=== PATIENT | female | born 1970 | race Caucasian/White ===

== ENCOUNTER → 2020-06-23 | Outpatient (CLI) | payer OTHER ==
[~2020-06-23] MED LIST: ACYC400 PO; ALORA1 EA10 TD; ASPI81CH PO; IBUP600 PO
== END | disposition home or self-care (01) ==
LOC: LAB SHORT 11:56 → LAB EV 11:56
DX: N39.0 Urinary tract infection, site not specified (principal)
CPT/HCPCS: 87077; 87086; 87186

== ENCOUNTER → 2020-07-05 | Outpatient (CLI) | payer OTHER ==
[2020-07-06 10:09] LABS: Candida species (DNA Probe) Negative (NEGATIVE); G. vaginalis (DNA Probe) Negative (NEGATIVE); T. vaginalis (DNA Probe) Negative (NEGATIVE)
[2020-07-07 04:09] LABS: CHLAMYDIA TRACHOMATIS, NAA Negative (Negative)
== END | disposition home or self-care (01) ==
LOC: LAB 11:20 → LAB SHORT 11:20
PROVIDERS: Obstetrics & Gynecology
DX: Z11.3 Encounter for screening for infections with a predominantly sexual mode of transmission (principal)
CPT/HCPCS: 87480; 87491; 87510; 87591; 87660

== ENCOUNTER 2020-07-22 19:25 | Observation (INO) | payer OTHER ==
[~2020-07-22] VITALS: Ht 172.7 cm; Wt 90.0 kg
[2020-07-22] MEDS ORDERED: ALORA1 EA10 TD (19:38)
[2020-07-22] MEDS ORDERED: ACYC400 PO (19:39)
[2020-07-22 20:02] LABS: BASOPHILS ABSOLUTE AUTO 0.03 K/mm3 (0.00-0.23); BASOPHILS PERCENT AUTO 0 % (0-2); EOSINOPHILS ABSOLUTE AUTO 0.06 K/mm3 (0.00-0.68); EOSINOPHILS PERCENT AUTO 1 % (0-6); Hematocrit 42.7 % (33.0-51.0); Hemoglobin 14.6 g/dL (11.5-16.0); IMMATURE GRAN ABSOLUTE AUTO 0.01 K/mm3 (0.00-0.10); IMMATURE GRAN PERCENT AUTO 0 % (0-1); LYMPHOCYTES ABSOLUTE AUTO 3.38 K/mm3 (0.84-5.20); LYMPHOCYTES PERCENT AUTO 41 % (21-46); MONOCYTES ABSOLUTE AUTO 0.81 K/mm3 (0.16-1.47); MONOCYTES PERCENT AUTO 10 % (4-13); Mean Corpuscular HGB 32.2 pg (26.0-34.0); Mean Corpuscular HGB Conc 34.2 g/dL (31.5-36.5); Mean Corpuscular Volume 94 fL (80-100); NEUTROPHILS ABSOLUTE AUTO 4.03 K/mm3 (1.96-9.15); NEUTROPHILS PERCENT AUTO 49 % (41-73); Platelet Count 244 K/mm3 (150-400); RDW Coefficient Variation 12.6 % (11.7-14.2); Red Blood Cell Count 4.53 M/mm3 (3.80-5.20); White Blood Cell Count 8.32 K/mm3 (4.00-11.30)
[2020-07-22 20:19] LABS: International Normalized Ratio 1.02; Prothrombin Time Results 10.9 Sec (9.7-11.5)
[2020-07-22 20:21] LABS: Alanine Aminotransfer (ALT/SGP 48 U/L (12-78); Albumin, Blood 4.2 g/dL (3.4-5.0); Albumin/Globulin Ratio 1.4 (0.8-1.8); Alk Phos 58 U/L (50-136); Anion Gap 5 mmol/L (6-16); Aspartate Aminotrans (AST/SGOT 31 U/L (12-37); Bilirubin, Total 0.4 mg/dL (0.1-1.0); Blood Urea Nitrogen 11 mg/dL (8-24); Bun/Creatinine Ratio 12.4 (12.0-20.0); CO2, Blood 26 mmol/L (21-32); Chloride, Blood 111 mmol/L (98-108); Creatinine, Blood 0.89 mg/dL (0.40-1.00); Ethanol (Alcohol), Blood, Med <3 mg/dL; Globulin, Blood 3.1 g/dL (2.2-4.0); Glomerular Filtration Rate >60 (60-); Glucose, Blood 102 mg/dL (70-99); Potassium, Blood 3.7 mmol/L (3.5-5.5); Sodium, Blood 142 mmol/L (136-145); Total Protein, Blood 7.3 g/dL (6.4-8.2)
--- NOTE | 2020-07-22 23:00 | NUR ---
REPORT RECEIVED FROM RAFAELAED RN. PT TRANSPORTED TO MEDICAL FLOOR [facility]IA [facility], AMBULATED FROM GURNEY TO BED. IN NO ACUTE DISTRESS. VS OBTAINED, ORIENTED TO ROOM/UNIT. BROUGHT PT A SNACK. CALL LIGHT, POSSESSIONS IN REACH, BED IN LOW POSITION. CONTINUE TO MONITOR.
[2020-07-23 04:12] LABS: Source, Urine Clean Catch
[2020-07-23 04:15] LABS: Bilirubin, Urine Neg (Neg); Blood, Urine Neg (Neg); Glucose Qualitative, Urine Neg (Neg); Ketones, Urine Neg (Neg); Leukocyte Esterase, Urine Neg (Neg); Nitrite, Urine Neg (Neg); Protein, Urine Neg (Neg); Urobilinogen, Urine NORM (Normal); pH, Urine 6.5 (5.0-8.0)
[2020-07-23 04:19] LABS: Appearance, Urine Clear (Clear); Color, Urine Yellow (P-Yellow)
[2020-07-23 04:25] LABS: U Amphetamine Screen Not Detected; U Barbituate Screen Not Detected; U Benzodiazapine Screen Not Detected; U Buprenorphine Screen Not Detected; U Cannabinoids Screen Not Detected; U Cocaine Screen Not Detected; U Methadone Screen Not Detected; U Methamphetamine Screen Not Detected; U Opiates Screen Not Detected; U Oxycodone Screen Not Detected; U Phencyclidine Screen Not Detected; U Propoxyphene Screen Not Detected
--- NOTE | 2020-07-23 04:34 | NUR ---
CATTLE DEHORNER SUMMARY PT RESTING, IN NO ACUTE DISTRESS. VS REVIEWED, WNL. NEURO STATUS STABLE, SPEECH APPEARS WNL FOR PT, NO SLURRED SPEECH NOTED. PT STATES SALGUERO REMAINS, BUT DENIES OFFERED PAIN MEDICATION. DENIES DIZZINESS, FEELINGS OF SYNCOPE. NO ACUTE NEEDS ASSESSED AT THIS TIME, PT APPEARS COMFORTABLE. CALL LIGHT, POSSESSIONS IN REACH, BED IN LOW POSITION. CONTINUE TO MONITOR, REPORT OFF TO DAY RN.
[2020-07-23 04:40] LABS: BASOPHILS ABSOLUTE AUTO 0.03 K/mm3 (0.00-0.23); BASOPHILS PERCENT AUTO 0 % (0-2); EOSINOPHILS ABSOLUTE AUTO 0.06 K/mm3 (0.00-0.68); EOSINOPHILS PERCENT AUTO 1 % (0-6); Hematocrit 39.5 % (33.0-51.0); Hemoglobin 13.3 g/dL (11.5-16.0); IMMATURE GRAN ABSOLUTE AUTO 0.02 K/mm3 (0.00-0.10); IMMATURE GRAN PERCENT AUTO 0 % (0-1); LYMPHOCYTES ABSOLUTE AUTO 2.73 K/mm3 (0.84-5.20); LYMPHOCYTES PERCENT AUTO 38 % (21-46); MONOCYTES ABSOLUTE AUTO 0.85 K/mm3 (0.16-1.47); MONOCYTES PERCENT AUTO 12 % (4-13); Mean Corpuscular HGB 32.3 pg (26.0-34.0); Mean Corpuscular HGB Conc 33.7 g/dL (31.5-36.5); Mean Corpuscular Volume 96 fL (80-100); Mean Platelet Volume 9.1 fL (9.1-12.4); NEUTROPHILS ABSOLUTE AUTO 3.53 K/mm3 (1.96-9.15); NEUTROPHILS PERCENT AUTO 49 % (41-73); Platelet Count 225 K/mm3 (150-400); RDW Coefficient Variation 12.8 % (11.7-14.2); RDW Standard Deviation 45.1 fL (35.1-46.3); Red Blood Cell Count 4.12 M/mm3 (3.80-5.20); White Blood Cell Count 7.22 K/mm3 (4.00-11.30)
[2020-07-23 04:56] LABS: Alanine Aminotransfer (ALT/SGP 43 U/L (12-78); Albumin, Blood 3.4 g/dL (3.4-5.0); Albumin/Globulin Ratio 1.3 (0.8-1.8); Alk Phos 53 U/L (50-136); Anion Gap 6 mmol/L (6-16); Aspartate Aminotrans (AST/SGOT 25 U/L (12-37); Bilirubin, Total 0.3 mg/dL (0.1-1.0); Blood Urea Nitrogen 10 mg/dL (8-24); Bun/Creatinine Ratio 12.1 (12.0-20.0); CO2, Blood 26 mmol/L (21-32); Calcium, Blood 8.7 mg/dL (8.5-10.1); Chloride, Blood 112 mmol/L (98-108); Creatinine, Blood 0.83 mg/dL (0.40-1.00); Globulin, Blood 2.7 g/dL (2.2-4.0); Glomerular Filtration Rate >60 (60-); Glucose, Blood 98 mg/dL (70-99); Potassium, Blood 3.8 mmol/L (3.5-5.5); Sodium, Blood 144 mmol/L (136-145); Total Protein, Blood 6.1 g/dL (6.4-8.2)
--- NOTE | 2020-07-23 14:16 | NUR ---
echocardiogram complete
[2020-07-23] MEDS ORDERED: ASPI81CH PO (16:46)
--- NOTE | 2020-07-23 18:40 | NUR ---
PATIENT DISCHARGE: PATIENT DISCHARGED TO HOME THIS SHIFT. MEDICATION RECONCILIATION COMPLETED; NO NEW MEDS TO REPORT. DISCHARGE EDUCATION COMPLETED WITH PATIENT AND S/O. PATIENT INDEPENDENT; PATIENT REFUSED WHEELCHAIR TRANSPORT; PATIENT DEPARTED MEDICAL FLOOR AT 1725. PATIENT DEPARTED [facility] VIA PRIVATE AUTO.
== END 2020-07-23 17:27 | disposition home or self-care (01) ==
LOC: ER 19:25 → MEDS 19:26
PROVIDERS: Emergency Medicine; ADMIT Internal Medicine
DX: R47.01 Aphasia (principal); R47.81 Slurred speech; F10.21 Alcohol dependence, in remission; B00.9 Herpesviral infection, unspecified; Z87.828 Personal history of other (healed) physical injury and trauma
CPT/HCPCS: 36415; 70450; 70496; 70498; 70551; 71045; 80053; 81003; 85025; 85610; 85730; 93005; 93010; 93306; 96361; 96372; 96374; 99285-25; A9270; G0378; G0480; J1650; J2405; J7030; Q9967

== ENCOUNTER 2020-09-26 07:03 | Day surgery (SDC) | payer OTHER ==
[~2020-09-26] VITALS: Ht 175.3 cm; Wt 88.8 kg
[~2020-09-26 07:03] MED LIST changes: -IBUP600 PO
[2020-09-26] MEDS ORDERED: IBUP600 PO (07:44)
== END 2020-09-26 09:14 | disposition home or self-care (01) ==
LOC: ORSCSDS 07:03
PROVIDERS: Surgery
PROC: 0DBL8ZX Excision of Transverse Colon, Via Natural or Artificial Opening Endoscopic, Diagnostic (ICD-10-PCS; principal; 2020-09-26 08:30)
DX: Z12.11 Encounter for screening for malignant neoplasm of colon (principal); F41.9 Anxiety disorder, unspecified; D12.3 Benign neoplasm of transverse colon; Z79.82 Long term (current) use of aspirin; Z79.899 Other long term (current) drug therapy
CPT/HCPCS: 88305; J0330; J0461; J2405; J2704; J7120

== ENCOUNTER 2021-08-17 06:57 | Day surgery (SDC) | payer BC ==
[~2021-08-17] VITALS: Ht 172.7 cm; Wt 93.3 kg
[~2021-08-17 06:57] MED LIST changes: +DIPATR PO; +IBUP600 PO
--- NOTE | 2021-08-17 07:41 | NUR ---
08/17/21 0741 Sadi Guillen NOTIFIED OF PATINT HAVING OPEN SPOT ON LEFT WRIST FROM HAY SPLINTER REMOVAL YESTERDAY AND OPEN ABRASIONS ON WRIST. AT BEDSIDE INSPECTING PATIENTS HAND AND STATED HE WILL PROCEED WITH PROCEDURE. PT NOTIFIED THERE IS A INCREASE IN RISK OF INFECTION AND WOULD LIKE TO PROCEED WELL.
--- NOTE | 2021-08-17 08:17 | NUR ---
08/17/21 0817 Jose Webber 0.15MG EPI ADDED TO 30ML'S 0.5% BUPIVACAINE TO ACHIEVE SOLUTION OF 0.5% BUPIVACAINE WITH EPI 1:200,000. 8ML'S INJ INTO OPSITE [place] [address] PALMER AWARE OF SMALL ABRASION ON LEFT WRIST AND SMALL SPLINTER ON LEFT PALM. OKAYED TO PROCEDE.
--- NOTE | 2021-08-17 09:32 | NUR ---
08/17/21 0932 BOZENA FELDER PT DENIES PAIN. NOTES NUMBNESS IN FINGERS
== END 2021-08-17 09:15 | disposition home or self-care (01) ==
LOC: ORSCSDS 06:57
PROVIDERS: Orthopaedic Surgery
PROC: 01N50ZZ Release Median Nerve, Open Approach (ICD-10-PCS; principal; 2021-08-17 08:15)
DX: G56.02 Carpal tunnel syndrome, left upper limb (principal); F41.8 Other specified anxiety disorders; K21.9 Gastro-esophageal reflux disease without esophagitis; E66.9 Obesity, unspecified; Z68.31 Body mass index [BMI] 31.0-31.9, adult; Z79.899 Other long term (current) drug therapy
CPT/HCPCS: J0171; J0690; J1885; J2250; J2704

== ENCOUNTER 2023-06-13 15:39 | Emergency (ER) | payer OTHER ==
[~2023-06-13] VITALS: Ht 172.7 cm; Wt 72.6 kg
[2023-06-13 16:10] VITALS: BP 139/101
== END 2023-06-13 19:27 | disposition home or self-care (01) ==
LOC: ER 15:39
DX: S82.62XA Displaced fracture of lateral malleolus of left fibula, initial encounter for closed fracture (principal); W01.0XXA Fall on same level from slipping, tripping and stumbling without subsequent striking against object, initial encounter; X50.9XXA Other and unspecified overexertion or strenuous movements or postures, initial encounter; Y93.02 Activity, running
CPT/HCPCS: 29515; 73610; 96372-59; 99283-25; J1885

== ENCOUNTER 2023-06-25 11:17 | Day surgery (SDC) | payer OTHER ==
[2023-06-25] VITALS (8 sets, daily range): BP systolic 120–134; BP diastolic 75–89
[~2023-06-25] VITALS: Ht 172.7 cm; Wt 73.4 kg
[~2023-06-25 11:17] MED LIST changes: +URSO300 PO
[2023-06-25] MEDS ORDERED: IBUP200 PO (11:36)
--- NOTE | 2023-06-25 12:37 | NUR ---
History, Chart, Medications and Allergies reviewed before start of procedure. Patient up to Ambulate independently. Gait steady. Pre-Op teaching done. Pt verbalizes understanding. Patient confirms NPO status and agrees with scheduled surgery. Lungs clear T/O to Auscultation. Surgical site prepped with 2% Chlorhexidine cloth wipe. Patient States Post-Procedure ride home has been arranged.
--- NOTE | 2023-06-25 15:10 | NUR ---
Discharge instructions reviewed with patient. Patient verbalizes understanding. Copy given to patient to take home. Dressing to procedure site clean, dry, intact with no visible drainage, swelling, erythema or bruising noted.
--- NOTE | 2023-06-25 15:22 | NUR ---
Discharged via wheelchair to private car for ride home.
== END 2023-06-25 15:24 | disposition home or self-care (01) ==
LOC: ORD 11:17 → ORSCMMR 11:17 → ORD 15:24
PROVIDERS: Orthopaedic Surgery
PROC: 0QSK04Z Reposition Left Fibula with Internal Fixation Device, Open Approach (ICD-10-PCS; principal; 2023-06-25 12:30)
DX: S82.62XA Displaced fracture of lateral malleolus of left fibula, initial encounter for closed fracture (principal); W01.0XXA Fall on same level from slipping, tripping and stumbling without subsequent striking against object, initial encounter; K21.9 Gastro-esophageal reflux disease without esophagitis; Z79.899 Other long term (current) drug therapy
CPT/HCPCS: A9270; C1713; J0171; J0690; J1100; J1790; J1885; J2250; J2405; J2704; J3010; J7120